=== PATIENT | female | born 1935 | race Caucasian/White ===

== ENCOUNTER 2020-08-11 16:20 | Emergency (ER) | payer OTHER, MEDICARE, BC ==
[2020-08-11 16:27] VITALS: PULSE 86; RESP 16; TEMP 98.7
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
[2020-08-11 17:42] VITALS: BP 179/81
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
== END 2020-08-11 18:36 | disposition home or self-care (01) ==
LOC: EC 16:20
DX: S20.219A Contusion of unspecified front wall of thorax, initial encounter (principal); Z91.048 Other nonmedicinal substance allergy status; V43.52XA Car driver injured in collision with other type car in traffic accident, initial encounter; Y92.410 Unspecified street and highway as the place of occurrence of the external cause
CPT/HCPCS: 71046; 99284